=== PATIENT | female | born 2000 | race Caucasian/White ===

== ENCOUNTER 2018-07-18 03:27 | Emergency (ER) | payer OTHER ==
--- NOTE | 2018-07-18 03:50 | ED ---
GI/ HPI - HPI Summary HPI Summary: A 17 y/o female presents to [facility] with a chief complaint of increased vaginal bleeding for the past week. She thinks that she may also have rectal bleeding. She noticed swelling in her genital area a few hours ago. She also reports intermittent constipation, but claims that she has had a BM today. She says that she has been on her period for close to a week. Since she got an IUD placed in November 2017, she has had her period last 3-4 days. She has not notably passed clots. She takes Zoloft for anxiety. - History of Current Complaint Chief Complaint: EDVaginalBleeding Time Seen by Provider: 07/18/18 03:39 Stated Complaint: FEELS LIKE SHE IS LOSING BLOOD PER PT Hx Obtained From: Patient Onset/Duration: Started Days Ago, Still Present Timing: Constant, Lasting Days Severity: Mild Current Severity: None Pain Intensity: 0 - out of 10 Location of Pain: None Pain Characteristics: Other: - none Associated Signs and Symptoms: Positive: Constipation, Other: - rectal bleeding. Negative: Fever Aggravating Factor(s): Nothing Alleviating Factor(s): Nothing - Allergy/Home Medications Allergies/Adverse Reactions: Allergies Allergy/AdvReac Type Severity Reaction Status Date / Time No Known Allergies Allergy Verified 07/18/18 03:33 PMH/Surg Hx/FS Hx/Imm Hx Sensory History: Denies: Hx Deafness EENT History: Denies: Hx Deafness Infectious Disease History: No Infectious Disease History: Denies: Traveled Outside the [place] in Last 30 Days - Family History Known Family History: Negative: Blood Disorder - Social History Alcohol Use: None Hx Substance Use: No Substance Use Type: Reports: None Hx Tobacco Use: No Smoking Status (MU): Never Smoked Tobacco Review of Systems Negative: Fever Positive: Other - positive: rectal bleeding, constipation Positive: other - positive: vaginal bleeding, swelling in genital area All Other Systems Reviewed And Are Negative: Yes Physical Exam - Summary Physical Exam Summary: VITAL SIGNS: Reviewed. GENERAL: Patient is a well-developed and nourished FEMALE who is lying comfortable in the stretcher. Patient is not in any acute respiratory distress. HEAD AND FACE: No signs of trauma. No ecchymosis, hematomas or skull depressions. No sinus tenderness. EYES: PERRLA, EOMI x 2, No injected conjunctiva, no nystagmus. EARS: Hearing grossly intact. Ear canals and tympanic membranes are within normal limits. MOUTH: Oropharynx within normal limits. NECK: Supple, trachea is midline, no adenopathy, no JVD, no carotid bruit, no c- spine tenderness, neck with full ROM CHEST: Symmetric, no tenderness at palpation LUNGS: Clear to auscultation bilaterally. No wheezing or crackles. CVS: Regular rate and rhythm, S1 and S2 present, no murmurs or gallops appreciated. ABDOMEN: Soft, non-tender. No signs of distention. No rebound no guarding, and no masses palpated. Bowel sounds are normal. EXTREMITIES: FROM in all major joints, no edema, no cyanosis or clubbing. NEURO: Alert and oriented x 3. No acute neurological deficits. Speech is normal and follows commands. SKIN: Dry and warm Rectal: external hemorrhoids Pelvic: IUD in place, very minimal vaginal bleeding Triage Information Reviewed: Yes Vital Signs On Initial Exam: Initial Vitals Temp Pulse Resp BP Pulse Ox 98.6 F 115 16 133/93 99 07/18/18 03:30 07/18/18 03:30 07/18/18 03:30 07/18/18 03:30 07/18/18 03:30 Vital Signs Reviewed: Yes Diagnostics - Vital Signs Vital Signs Temp Pulse Resp BP Pulse Ox 07/18/18 03:30 98.6 F 115 16 133/93 99 - Laboratory Result Diagrams: 07/18/18 04:09 07/18/18 04:09 Lab Statement: Any lab studies that have been ordered have been reviewed, and results considered in the medical decision making process. - Radiology abdomen x-ray Radiology Interpretation Completed By: ED Physician Summary of Radiographic Findings: IUD in place, moderate amount of stool in rectum. Pending official imaging report. GIGU Course/Dx - Course Course Of Treatment: A 17 y/o female presents to [facility] with a chief complaint of increased vaginal bleeding for the past week. She thinks that she may also have rectal bleeding. The physical exam revealed external hemorrhoids, Pelvic IUD in place, very minimal vaginal bleeding. Abdomen x-ray showed IUD in place, moderate amount of stool in rectum. Bloodwork and chemistries obtained and are WNL. The patient will be discharged home and follow up with her PCP. The patient is agreeable with this plan. - Diagnoses Provider Diagnoses: Constipation, Hemorrhoids Discharge - Sign-Out/Discharge Documenting (check all that apply): Patient Departure - DC Patient Received Moderate/Deep Sedation with Procedure: No - Discharge Plan Condition: Stable Disposition: HOME Patient Education Materials: Constipation (DC), Hemorrhoids (DC) Referrals: [facility] [place] [facility]ERR[facility] [Outside] (2-3 days) Additional Instructions: PLEASE RETURN TO THE ED IMMEDIATELY FOR WORSENING OR CONCERNING SYMPTOMS. - Billing Disposition and Condition Condition: STABLE Disposition: Home - Attestation Statements Document Initiated by Scribe: Yes Documenting Scribe: John Paul Gandara Provider For Whom Gavinoibe is Documenting (Include Credential): Dusty Beatty MD Scribe Attestation: John Paul Landis, scribed for Dusty Beatty MD on 07/18/18 at 0549. Scribe Documentation Reviewed: Yes Provider Attestation: The documentation as recorded by the John Paul canales accurately reflects the service I personally performed and the decisions made by me, Dusty Beatty MD Status of Scribe Document: Viewed
[2018-07-18 04:23] LABS: ABS Basophils 0.1 10^3/ul (0-0.2); ABS Eosinophils 0.1 10^3/ul (0-0.6); ABS Lymphocytes 1.8 10^3/ul (1.0-4.8); ABS Monocytes 0.7 10^3/ul (0-0.8); Eosinophil % 1.2 %; Hematocrit 43 % (35-47); Hemoglobin 15.1 g/dL (12.0-16.0); Lymphocyte % 23.9 %; Mean Corpuscular HGB Conc 35 g/dL (31-36); Mean Corpuscular Hemoglobin 31 pg (27-31); Mean Corpuscular Volume 90 fL (80-97); Mean Platelet Volume 7.5 fL (7.4-10.4); Platelet Count 258 10^3/uL (150-450); Red Blood Count 4.83 10^6 /uL (3.70-4.87); Red Cell Distribution Width 13 % (10-15); White Blood Count 7.6 10^3/uL (3.5-10.8)
[2018-07-18 04:41] LABS: ALT 15 U/L (7-52); AST 24 U/L (13-39); Albumin 4.9 g/dL (3.2-5.2); Albumin/Globulin Ratio 1.7 (1-3); Alkaline Phosphatase 89 U/L (34-104); Anion Gap 8 mmol/L (2-11); BUN/Creatinine Ratio 10.5 (8-20); Blood Urea Nitrogen 8 mg/dL (6-24); CO2 Carbon Dioxide 25 mmol/L (22-32); Calcium 9.9 mg/dL (8.6-10.3); Chloride 103 mmol/L (101-111); EGFR African American 118.6 (>60); Globulin 2.9 g/dL (2-4); Glucose 130 mg/dL (70-100); Potassium 3.6 mmol/L (3.5-5.0); Sodium 136 mmol/L (135-145); Total Protein 7.8 g/dL (6.4-8.9)
[2018-07-18 04:47] LABS: HCG Pregnancy < 0.60 mIU/mL
[2018-07-18] MEDS ORDERED: Magnesium CITRATE* 300 ML BTL PO ONE (04:53)
[2018-07-18] MEDS ORDERED: Bisacodyl SUPP* 10 MG SUPP PR ONE (04:53)
[2018-07-18 05:17] VITALS: BP 129/78
--- NOTE | 2018-07-18 16:58 | PN ---
Progress Note - Progress Note Date of Service: 07/17/18 Note: Pt. seen in ED for vaginal bleeding and constipation. No wet read entered for abd. xr. Final read per radiology: IMPRESSION: LEFT NEPHROLITHIASIS. R1F No change in treatment at this time.
== END 2018-07-18 05:16 | disposition home or self-care (01) ==
LOC: ED 03:27
DX: K59.00 Constipation, unspecified (principal); K64.4 Residual hemorrhoidal skin tags; N93.9 Abnormal uterine and vaginal bleeding, unspecified; N20.0 Calculus of kidney; Z97.5 Presence of (intrauterine) contraceptive device; F41.9 Anxiety disorder, unspecified
CPT/HCPCS: 36415; 74019; 80053; 84702; 85025; 99282; A9270-GY